=== PATIENT | male | born 1980 | race African-American/Black ===

== ENCOUNTER 2018-06-04 21:49 | Emergency (ER) | payer OTHER ==
[~2018-06-04] VITALS: Ht 172.7 cm; Wt 88.9 kg
[2018-06-04] MEDS ORDERED: OXYCONTIN10 MG ORAL (22:05)
[2018-06-04] MEDS ORDERED: Morphine Sulfate 4mg/ml Inj IVP ONE (22:30)
[2018-06-04] MEDS ORDERED: Ketorolac 30mg Inj IV ONE (22:30)
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
[2018-06-05] MEDS ORDERED: fentaNYL 100 mcg/2 mL IV ONE
[2018-06-05] MEDS ORDERED: NORCO 5-325 TA1 EACH ORAL (00:42)
[2018-06-05] MEDS ORDERED: ROBAXIN500 MG PO (00:42)
[2018-06-05] MEDS ORDERED: IBUPROFEN600 MG ORAL (00:42)
[2018-06-05] MEDS ORDERED: oxyCODONE HCL/Acetaminophen 5/325mg ORAL ONE (00:45)
[2018-06-05 00:49] VITALS: BP 134/79
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
== END 2018-06-05 00:55 | disposition home or self-care (01) ==
LOC: EMR 23:17
DX: S83.92XA Sprain of unspecified site of left knee, initial encounter (principal); S33.5XXA Sprain of ligaments of lumbar spine, initial encounter; Y04.2XXA Assault by strike against or bumped into by another person, initial encounter; Y92.89 Other specified places as the place of occurrence of the external cause; F17.200 Nicotine dependence, unspecified, uncomplicated
CPT/HCPCS: 72020; 96374; 96375; 99284; J2405